=== PATIENT | female | born 1990 | race Caucasian/White ===

== ENCOUNTER 2016-12-25 21:52 | Emergency (ER) | payer BC ==
[2016-12-25 22:28] LABS: BASOPHIL % 0.6 % (0-2); PLATELET COUNT 279 x10^3mcL (130-400)
[2016-12-25 22:36] LABS: RED CELL DISTRIBUTION WIDTH 14.6 % (11.5-14.5)
[2016-12-25 22:41] LABS: CALCIUM 8.9 mg/dL (8.5-10.1); CARBON DIOXIDE 28.7 mmol/L (21-32); CHLORIDE SERUM 104 mmol/L (98-107); CREATININE SERUM 0.8 mg/dL (0.6-1.0); GFR1 > 60 mL/min; GLUCOSE SERUM 137 mg/dL (74-106); POTASSIUM SERUM 3.4 mmol/L (3.5-5.1); SODIUM SERUM 142 mmol/L (136-145)
[2016-12-25 22:44] LABS: ALBUMIN 3.9 g/dL (3.4-5.0); ALKALINE PHOSPHATASE 108 U/L (46-116); ALT/SGPT 131 U/L (14-59); AMYLASE 66 U/L (25-115); AST/SGOT 74 U/L (15-37); BILIRUBIN TOTAL 0.5 mg/dL (0.20-1.00); LIPASE 133 IU/L (73-393); TOTAL PROTEIN, SERUM 7.7 g/dL (6.4-8.2)
[2016-12-26 00:48] VITALS: BP 93/55
== END 2016-12-26 00:48 | disposition home or self-care (01) ==
LOC: ED 21:52
PROVIDERS: Emergency Medicine
DX: R10.13 Epigastric pain (principal); R53.83 Other fatigue; Z79.899 Other long term (current) drug therapy; Z90.49 Acquired absence of other specified parts of digestive tract
CPT/HCPCS: J7030

== ENCOUNTER 2017-01-22 02:07 | Emergency (ER) | payer BC ==
[2017-01-22 02:21] VITALS: BP 122/78
== END 2017-01-22 04:33 | disposition home or self-care (01) ==
LOC: ED 02:07
DX: J40 Bronchitis, not specified as acute or chronic (principal)

== ENCOUNTER 2017-12-24 18:04 | Emergency (ER) | payer SELFPAY ==
[~2017-12-24] VITALS: Ht 154.9 cm; Wt 77.6 kg
[2017-12-24 18:41] VITALS: Ht 154.9 cm; Wt 77.6 kg
[2017-12-24 19:43] LABS: BASOPHIL % 0.7 % (0-2); PLATELET COUNT 311 x10^3mcL (130-400)
[2017-12-24 19:44] LABS: RED CELL DISTRIBUTION WIDTH 14.8 % (11.5-14.5)
[2017-12-24 19:55] LABS: CARBON DIOXIDE 30.6 mmol/L (21-32); CHLORIDE SERUM 104 mmol/L (98-107); CREATININE SERUM 0.6 mg/dL (0.6-1.0); GFR1 > 60 mL/min; GLUCOSE SERUM 96 mg/dL (74-106); POTASSIUM SERUM 4.1 mmol/L (3.5-5.1); SODIUM SERUM 142 mmol/L (136-145)
[2017-12-24 19:59] LABS: ALBUMIN 3.7 g/dL (3.4-5.0); ALKALINE PHOSPHATASE 106 U/L (46-116); ALT/SGPT 107 U/L (14-59); AMYLASE 78 U/L (25-115); AST/SGOT 46 U/L (15-37); BILIRUBIN TOTAL 0.3 mg/dL (0.20-1.00); LIPASE 111 IU/L (73-393); TOTAL PROTEIN, SERUM 7.7 g/dL (6.4-8.2)
[2017-12-24 21:04] VITALS: BP 107/58
== END 2017-12-24 21:04 | disposition home or self-care (01) ==
LOC: ED 18:04
PROVIDERS: Specialist
DX: R10.31 Right lower quadrant pain (principal); Z90.49 Acquired absence of other specified parts of digestive tract
CPT/HCPCS: 83880; J1885; J7030

== ENCOUNTER 2018-09-22 19:37 | Emergency (ER) | payer SELFPAY ==
[~2018-09-22] VITALS: Ht 154.9 cm; Wt 81.6 kg
[2018-09-22 19:48] VITALS: Ht 154.9 cm; Wt 81.6 kg
[2018-09-22 20:59] LABS: BASOPHIL % 0.5 % (0-2); PLATELET COUNT 297 x10^3mcL (130-400)
[2018-09-22 21:02] LABS: RED CELL DISTRIBUTION WIDTH 16.5 % (11.5-14.5)
[2018-09-22 21:14] LABS: CALCIUM 9.1 mg/dL (8.5-10.1); CARBON DIOXIDE 28.5 mmol/L (21-32); CHLORIDE SERUM 103 mmol/L (98-107); GFR1 > 60 mL/min; GLUCOSE SERUM 107 mg/dL (74-106); POTASSIUM SERUM 3.8 mmol/L (3.5-5.1); SODIUM SERUM 140 mmol/L (136-145)
[2018-09-22 21:17] LABS: ALBUMIN 3.9 g/dL (3.4-5.0); ALKALINE PHOSPHATASE 130 U/L (46-116); ALT/SGPT 77 U/L (14-59); AST/SGOT 37 U/L (15-37); BILIRUBIN TOTAL 0.21 mg/dL (0.20-1.00)
[2018-09-22 21:20] LABS: TOTAL PROTEIN, SERUM 8.7 g/dL (6.4-8.2)
[2018-09-22 22:37] VITALS: BP 116/70
== END 2018-09-22 22:37 | disposition home or self-care (01) ==
LOC: ED 19:37
PROVIDERS: Emergency Medicine
DX: R09.1 Pleurisy (principal); R74.8 Abnormal levels of other serum enzymes; Z90.49 Acquired absence of other specified parts of digestive tract
CPT/HCPCS: 36415; J1885